=== PATIENT | female | born 1930 | race Caucasian/White ===

== ENCOUNTER 2016-06-26 15:44 | Emergency (ER) | payer MEDICARE, BC ==
[2016-06-26 15:56] VITALS: TEMP 98.8
--- NOTE | 2016-06-26 16:43 | XR ---
EXAMINATION TYPE: XR foot complete LT DATE OF EXAM: 06/26/2016 4:32 PM COMPARISON: NONE HISTORY: Pain first digit TECHNIQUE: 3 view left foot FINDINGS: There appears to be some diffuse soft tissue swelling. Structures are osteopenic sclerotic. Occult fracture may be difficult identified. No acute fractures are identified. The first digit appears intact. There is degenerative joint change s present within the first digit as well as the proximal and distal interphalangeal joint spaces of t he digits. IMPRESSION: 1. Osteoporosis and degenerative joint changes. 2. No acute osseous abnormality. 3. Follow-up exam can be 10 days from acute trauma for continued pain.
--- NOTE | 2016-06-26 17:02 | ED ---
General Adult HPI - General Chief complaint: Extremity Injury, Lower Stated complaint: ankle pain Time Seen by Provider: 06/26/16 16:08 Source: patient, RN notes reviewed Mode of arrival: wheelchair Limitations: no limitations - History of Present Illness Initial comments: Is a 5-year-old female who presents emergency room today with chief complaint of a injury to the left foot that occurred yesterday. She does admit that she was getting up out of wheelchair when her toe got caught and caused injury. She does admit to increased pain swelling locally to this area. Patient does admit that she iced it throughout the night. She states still locally tender and painful to certain movements. She does admit that she does have fentanyl at home for pain. Patient denies any head injury or loss conscious. Denies any other complaints or associated symptoms. Patient denies any recent fever, chills, shortness of breath, chest pain, back pain, abdominal pain, nausea or vomiting, numbness or tingling, dysuria or hematuria, constipation or diarrhea, headaches or visual changes, or any other complaints. - Related Data Home Medications Medication Instructions Recorded Confirmed Cholecalciferol [Vitamin D3] 1,000 unit PO DAILY 03/04/14 06/26/16 Diltiazem HCl [Cardizem Cd] 360 mg PO DAILY 03/04/14 06/26/16 Isosorbide Mononitrate ER [Imdur] 60 mg PO DAILY 03/04/14 06/26/16 Sennosides [Senokot] 8.6 mg PO DAILY 03/04/14 06/26/16 Sotalol [Betapace] 40 mg PO BID 03/04/14 06/26/16 Previous Rx's Medication Instructions Recorded Acetaminophen Tab [Tylenol] 650 mg PO Q6HR PRN #1 tab 03/08/14 Apixaban [Eliquis] 2.5 mg PO BID #60 tab 03/08/14 Sulfamethox-Tmp 800-160Mg [Bactrim 1 tab PO Q12HR #20 tab 06/26/16 DS 800-160 mg] Allergies Allergy/AdvReac Type Severity Reaction Status Date / Time cephalexin monohydrate Allergy Unknown Verified 06/26/16 15:56 [From Keflex] codeine Allergy Unknown Verified 06/26/16 15:56 cyclobenzaprine HCl Allergy Unknown Verified 06/26/16 15:56 [From Flexeril] iodine Allergy Unknown Verified 06/26/16 15:56 Review of Systems ROS Statement: Those systems with pertinent positive or pertinent negative responses have been documented in the HPI. ROS Other: All systems not noted in ROS Statement are negative. Past Medical History Past Medical History: Atrial Fibrillation, Coronary Artery Disease (CAD), Heart Failure, CVA/TIA, Diabetes Mellitus, Hearing Disorder / Deafness, Hypertension, Myocardial Infarction (AL) Additional Past Medical History / Comment(s): VISUAL PROBLEMS Last Myocardial Infarction Date:: 1977 History of Any Multi-Drug Resistant Organisms: None Reported Past Surgical History: Pacemaker Additional Past Surgical History / Comment(s): CERVICAL FUSION 1961. LEFT SHOULDER REPLACEMENT. RIGHT HIP REPLACEMENT Past Anesthesia/Blood Transfusion Reactions: No Reported Reaction Type of Cardiac Device: Permanent Pacemaker Device Placement Date:: 2011 BETTY VELASCO Past Psychological History: No Psychological Hx Reported Smoking Status: Former smoker Past Alcohol Use History: Rare Past Drug Use History: None Reported - Past Family History Sister(s) Family Medical History: Cancer Additional Family Medical History / Comment(s): COLON CANCER General Exam - General Exam Comments Initial Comments: General: The patient is awake and alert, in no distress, and does not appear acutely ill. Neck: The neck is supple, there is no tenderness or JVD. Cardiovascular: There is a regular rate and rhythm. No murmur, rub or gallop is appreciated. Respiratory: Lungs are clear to auscultation, respirations are non-labored, breath sounds are equal. No wheezes, stridor, rales, or rhonchi. Musculoskeletal: Patient does have some moderate swelling at the base of the great toe. Locally warm. There is no lymphangitic streaking. Shows good range of motion. Does have some tenderness over the great toe at MTP joint and proximal first phalanx. Sensations intact with pulses equal bilaterally 2+. Strength 5/5. No other bony tenderness on exam. Neurological: A&O x 3. CN II-XII intact, There are no obvious motor or sensory deficits. Coordination appears grossly intact. Speech is normal. Skin: Skin is warm and dry and no rashes or lesions are noted. Psychiatric: Normal mood and affect. Limitations: no limitations Course Vital Signs 06/26/16 15:54 Temperature 98.8 F Pulse Rate 74 Respiratory 20 Rate Blood Pressure 156/85 O2 Sat by Pulse 89 L Oximetry Medical Decision Making - Medical Decision Making X-ray reviewed and is negative for any acute fracture dislocation. There is some mild redness and warmth to the anterior aspect. It was discussed about possible infection. Will be covered with antibiotics. Patient does have pain medicine that she can use at home is advised continued ice elevate. Advised return if any symptoms increase or worsen or for any other concerns. Disposition Clinical Impression: Foot injury Disposition: HOME SELF-CARE Condition: Good Instructions: Foot Contusion (ED) Additional Instructions: Please use medication as discussed. Please follow-up with family doctor in the next 2 days of symptoms have not improved. Please return to emergency room if the symptoms increase or worsen or for any other concerns. Prescriptions: Sulfamethox-Tmp 800-160Mg [Bactrim DS 800-160 mg] 1 tab PO Q12HR #20 tab Time of Disposition: 17:01
[2016-06-26 17:20] VITALS: BP 165/88; PULSE 98; RESP 18
== END 2016-06-26 17:19 | disposition home or self-care (01) ==
LOC: EC 15:44
DX: S99.922A Unspecified injury of left foot, initial encounter (principal); I25.10 Atherosclerotic heart disease of native coronary artery without angina pectoris; I48.91 Unspecified atrial fibrillation; I11.0 Hypertensive heart disease with heart failure; I50.9 Heart failure, unspecified; I25.2 Old myocardial infarction; Z87.891 Personal history of nicotine dependence; Z79.899 Other long term (current) drug therapy; Z88.5 Allergy status to narcotic agent; Z88.8 Allergy status to other drugs, medicaments and biological substances; Z88.1 Allergy status to other antibiotic agents; W18.40XA Slipping, tripping and stumbling without falling, unspecified, initial encounter
CPT/HCPCS: 99283